=== PATIENT | male | born 1980 | race Two or more races ===

== ENCOUNTER 2022-10-06 17:03 | Emergency (ER) | payer SELFPAY ==
[~2022-10-06] VITALS: Ht 172.7 cm; Wt 90.7 kg
[2022-10-06] MEDS ORDERED: IV NS 0.9% 1,000 ML IV ONE (17:30)
[2022-10-06 17:43] LABS: BASOPHILS % (AUTO) 0.4 % (0.0-2.0); EOSINOPHILS % (AUTO) 1.8 % (0.0-6.0); HEMATOCRIT 44 % (39-51); HEMOGLOBIN 15.1 g/dL (13.5-17.5); LYMPHOCYTES # (AUTO) 2.2 K/uL (0.8-4.8); LYMPHOCYTES % (AUTO) 30.2 % (20.0-44.0); MEAN CORPUSCULAR HGB CONC 34 g/dl (31.0-36.0); MEAN CORPUSCULAR VOLUME 96 fL (80-96); MONOCYTES # (AUTO) 0.5 K/uL (0.1-1.30); NEUTROPHILS # (AUTO) 4.5 K/uL (1.8-8.9); NEUTROPHILS % (AUTO) 60.6 % (43.0-81.0); PLATELET COUNT (AUTO) 318 K/uL (150-450); RED BLOOD CELL COUNT(AUTO) 4.63 MIL/uL (4.5-6.0); WHITE BLOOD COUNT (AUTO) 7.4 K/uL (4.3-11.0)
[2022-10-06 17:55] LABS: CALCIUM, SERUM 8.9 mg/dL (8.5-10.1); POTASSIUM 3.6 mmol/L (3.5-5.1)
--- NOTE | 2022-10-06 19:10 | NUR ---
IV removed. Catheter intact and site benign. Pressure and 4x4 applied to site. No bleeding noted. Patient discharged to home in stable condition. Written and verbal after care instructions given. Patient verbalizes understanding of instruction.
[2022-10-06 19:12] VITALS: BP 126/66
== END 2022-10-06 19:12 | disposition home or self-care (01) ==
LOC: ER 17:08
DX: R42 Dizziness and giddiness (principal); Z65.9 Problem related to unspecified psychosocial circumstances
CPT/HCPCS: 99284; 96360; 93005; 85025; 80048; 36415; 82962; J7030 ×2